=== PATIENT | male | born 1955 | race Caucasian/White ===

== ENCOUNTER 2018-02-06 10:08 | Emergency (ER) | payer MEDICAID ==
[~2018-02-06] VITALS: Ht 182.9 cm; Wt 136.1 kg
[2018-02-06] MEDS ORDERED: TESSALON PERLE100 MG PO (10:23)
[2018-02-06] MEDS ORDERED: AUGMENTIN 875-1 EACH PO (10:23)
[2018-02-06] MEDS ORDERED: METHYLPREDNISOLO4 M1 PO (10:23)
[2018-02-06] MEDS ORDERED: GEMFIBROZIL600 MG (10:25)
[2018-02-06] MEDS ORDERED: GLUCOPHAGE1000 MG PO (10:25)
== END 2018-02-06 10:35 | disposition home or self-care (01) ==
LOC: ED 10:08
DX: J40 Bronchitis, not specified as acute or chronic (principal)
CPT/HCPCS: 99283